=== PATIENT | female | born 1940 | race Caucasian/White ===

== ENCOUNTER 2018-06-06 15:53 | Emergency (ER) | payer OTHER ==
--- NOTE | 2018-06-06 16:38 | RAD REPORT ---
EXAM DESCRIPTION: CT - Head Brain Wo Cont - 06/06/2018 4:21 pm CLINICAL HISTORY: Left-sided headache and periauricular pain COMPARISON: None. TECHNIQUE: Axial 5 mm thick images of the head were obtained without IV contrast. All CT scans are performed using dose optimization technique as appropriate and may include automated exposure control or mA/KV adjustment according to patient size. FINDINGS: No intracranial hemorrhage, mass, edema or shift of mid-line structures. No acute infarcti on changes seen. No abnormal extra-axial fluid collections. Mild atrophy and chronic ischemic changes . Ventricles are in proportion. Mastoid air cells and visualized portions of the paranasal sinuses are clear. No acute bony findings. IMPRESSION: Negative non-contrast CT head examination for acute finding.
[2018-06-06 17:02] LABS: Absolute Lymphocytes (CBC) 1.9 K/uL (0.7-4.9); Absolute Monocytes 0.6 K/uL (0.1-1.3); Absolute Neutrophil 2.5 K/uL (1.8-8.0); Basophils % 0.5 % (0-1.3); Eosinophils % 4.1 % (0-4.4); Hematocrit 39.7 % (36.0-45.0); Lymphocytes % 36.6 % (15.3-44.8); MPV 9.2 fL (7.6-11.3); Monocytes % 11.3 % (3.3-12.3); RBC Red Blood Cell Count 4.52 M/uL (3.86-4.86)
[2018-06-06 17:04] LABS: Protime INR 1.01
--- NOTE | 2018-06-06 17:13 | RAD REPORT ---
EXAM DESCRIPTION: RAD - Chest Single View - 06/06/2018 4:59 pm CLINICAL HISTORY: Cough, shortness of breath COMPARISON: None. TECHNIQUE: AP portable chest image was obtained 1650 hours . FINDINGS: No peripheral mass or consolidation. No vascular engorgement seen. Mediastinum is distorte d slightly by rotation. Interstitial markings are prominent suspected to be baseline. Heart and vascu lature are normal. No measurable pleural effusion and no pneumothorax. No acute bone finding. Bilater al shoulder prostheses in place. No acute aortic findings suspected. IMPRESSION: No acute cardiopulmonary process. Prominent interstitial markings believed be baseline. Fullness of the right hilum is believed to be right pulmonary artery accentuated by slight patient ro tation.
[2018-06-06 17:19] LABS: ALT/SGPT 28 U/L (12-78); AST/SGOT 34 U/L (15-37); Albumin 3.6 g/dL (3.4-5.0); Alkaline Phosphatase 60 U/L (45-117); BUN Blood Urea Nitrogen 31 mg/dL (7-18); Bicarbonate 27 mmol/L (21-32); Bilirubin Direct 0.1 mg/dL (0-0.2); Bilirubin Total 0.3 mg/dL (0.2-1.0); Glucose Level 90 mg/dL (74-106); Magnesium 2.4 mg/dL (1.8-2.4); NT PRO-BNP 99 pg/mL (<450); Potassium 3.8 mmol/L (3.5-5.1); Protein, Total 7.1 g/dL (6.4-8.2); Sodium Level 141 mmol/L (136-145); Troponin (Emerg Dept Use Only) < 0.02 ng/mL (0.0-0.045)
--- NOTE | 2018-06-06 17:43 | EKG ---
Test Date: 2018-06-06 Test Time: 16:25:36 Coil Winder Hand: FAUSTINO MEASUREMENT RESULTS: Intervals: Rate: 70 WV: 154 QRSD: 106 QT: 438 QTc: 473 [place]: P: 12 WV: 154 QRS: 60 T: 36 INTERPRETIVE STATEMENTS: Normal sinus rhythm Incomplete right bundle branch block Borderline ECG No previous ECG available for comparison Electronically Signed On 06-06-18 17:42:26 CDT by Garcia Junior
[2018-06-06] MEDS ORDERED: GABAPENTIN 300 MG CAP ONE (18:58)
[2018-06-06] MEDS ORDERED: HYDROCODONE/APAP 7.5/325 MG TAB ONE (18:59)
--- NOTE | 2018-06-06 19:05 | ER ---
Nurse's Notes [facility] Name: Chhaya Hair Age: 77 yrs Sex: Female : 1940 Arrival Date: 06/06/2018 Time: 15:58 Bed 6 Private MD: out of town, doctor Diagnosis: Neuralgia and neuritis, unspecified Presentation: 06/06 16:00 Presenting complaint: Patient states: 3 days ago this pain started behind my left ear, tw2 i sat down and about an hour or 2 later there was a dote on the wall that moved, then when i got close to it it was a hole in the wall, [place] live in [place] and didn't have time to come get it checked out then yesterday it started throbbing behind my left ear. Transition of care: patient was not received from another setting of care. Onset of symptoms was June 06, 2018. Risk Assessment: Do you want to hurt yourself or someone else? Patient reports no desire to harm self or others. Initial Sepsis Screen: Does the patient meet any 2 criteria? No. Patient's initial sepsis screen is negative. Does the patient have a suspected source of infection? No. Patient's initial sepsis screen is negative. Care prior to arrival: None. 16:00 Method Of Arrival: Ambulatory tw2 16:00 Acuity: HAMIL[place] 2 tw2 Triage Assessment: 16:03 Headache History: Denies prior headaches. General: Appears in no apparent distress. tw2 Behavior is calm, cooperative, appropriate for age. Pain: Complains of pain in left ear and left base of the skull Pain currently is 0 out of 10 on a pain scale. at worst was 10 out of 10 on a pain scale. Pain began 2-3 days ago. Also complains of no other associated symptoms. Neuro: Reports blurred vision yesterday Denies blurred vision. Historical: - Allergies: 16:05 No Known Allergies; tw2 - PMHx: 16:05 Hypothyroidism; tw2 - Immunization history:: Adult Immunizations. - Social history:: Smoking status: . - Ebola Screening: : Patient denies travel to an Ebola-affected area in the 21 days before illness onset. Screenin:30 Abuse screen: Denies threats or abuse. Denies injuries from another. Nutritional hb screening: No deficits noted. Tuberculosis screening: No symptoms or risk factors identified. Fall Risk None identified. Assessment: 16:30 General: Appears in no apparent distress. Behavior is calm, cooperative. Pain: Pain hb currently is 5 out of 10 on a pain scale. at worst was 10 out of 10 on a pain scale. Neuro: Level of Consciousness is awake, alert, obeys commands, Oriented to person, place, time, situation. Cardiovascular: Capillary refill < 3 seconds Patient's skin is warm and dry. Respiratory: Airway is patent Respiratory effort is even, unlabored, Respiratory pattern is regular, symmetrical, Breath sounds are clear bilaterally. GI: No signs and/or symptoms were reported involving the gastrointestinal system. : No signs and/or symptoms were reported regarding the genitourinary system. EENT: No signs and/or symptoms were reported regarding the EENT system. Derm: Skin is intact, is healthy with good turgor, Skin is pink, warm \\T\\ dry. Musculoskeletal: No signs and/or symptoms reported regarding the musculoskeletal system. 17:30 Reassessment: Patient appears in no apparent distress at this time. Patient and/or hb family updated on plan of care and expected duration. Pain level reassessed. Patient is alert, oriented x 3, equal unlabored respirations, skin warm/dry/pink. 18:30 Reassessment: Patient appears in no apparent distress at this time. No changes from hb previously documented assessment. Patient and/or family updated on plan of care and expected duration. Pain level reassessed. Patient is alert, oriented x 3, equal unlabored respirations, skin warm/dry/pink. 19:24 Reassessment: Patient appears in no apparent distress at this time. Patient and/or jd3 family updated on plan of care and expected duration. Pain level reassessed. Patient is alert, oriented x 3, equal unlabored respirations, skin warm/dry/pink. Vital Signs: 16:02 BP 132 / 81; Pulse 71; Resp 17; Temp 97.2(TE); Pulse Ox 97% on R/A; Weight 79.38 kg tw2 (R); Height 5 ft. 0 in. (152.40 cm); Pain 10/10; 18:00 BP 136 / 86; Pulse 74; Resp 16; Pulse Ox 99% on R/A; hb 16:02 Body Mass Index 34.18 (79.38 kg, 152.40 cm) tw2 16:02 "its a 10 when its there it comes and goes and is a throbbing behind my ear" tw2 ED Course: 15:58 Patient arrived in ED. mr 15:58 out of town, doctor is Private Physician. mr 16:02 Triage completed. tw2 16:03 Arm band placed on. tw2 16:05 Inserted saline lock: 20 gauge in left antecubital area, using aseptic technique. Blood hb collected. 16:09 Howard Rodrigez MD is Attending Physician. kdr 16:20 CT Head Brain wo Cont In Process Unspecified. EDMS 16:29 EKG done, by wind energy technician. reviewed by Howard Rodrigez MD. sm3 16:30 Patient has correct armband on for positive identification. Bed in low position. Call hb light in reach. Side rails up X 1. 16:39 Margo Payton, BETZY is Primary Nurse. ss 16:59 XRAY Chest (1 view) In Process Unspecified. EDMS 19:25 No provider procedures requiring assistance completed. IV discontinued, intact, jd3 bleeding controlled, No redness/swelling at site. Pressure dressing applied. Administered Medications: 18:48 Drug: Neurontin 300 mg Route: PO; bp 19:10 Follow up: Response: No adverse reaction jd3 18:49 Drug: [place] (7.5 mg-325 mg) 1 tabs Route: PO; bp 19:11 Follow up: Response: No adverse reaction jd3 19:23 Drug: TORadol - Ketorolac 15 mg Route: IVP; Site: left antecubital; jd3 19:23 Follow up: Response: Medication administered at discharge. jd3 19:23 Drug: SOLU-Medrol 125 mg Route: IVP; Site: left antecubital; jd3 19:23 Follow up: Response: Medication administered at discharge. jd3 Outcome: 19:05 Discharge ordered by . kdr 19:25 Discharged to home ambulatory, with family. jd3 19:25 Condition: stable 19:25 Discharge instructions given to patient, family, Instructed on discharge instructions, follow up and referral plans. medication usage, Demonstrated understanding of instructions, follow-up care, medications, Prescriptions given X 3. 19:26 Patient left the ED. jd3 Signatures: Dispatcher [employer] EDMS Howard Rodrigez MD MD kdr Rivera, Mary mr TataMargo, RN RN ss Jessica Butler, RN RN hb Hortensia Mayers RN RN tw2 Demian Vázquez RN RN jd3 Gentry Thomas RN RN bp Pushpa Sommers 3 Corrections: (The following items were deleted from the chart) 16:05 16:00 Acuity: HAMILTON 3 tw tw
--- NOTE | 2018-06-06 19:06 | EDPHYS ---
Physician Documentation [facility] Name: Chhaya Hair Age: 77 yrs Sex: Female : 1940 Arrival Date: 06/06/2018 Time: 15:58 Bed 6 Private MD: out of town, doctor ED Physician Howard Rodrigez HPI: 06/06 18:51 This 77 yrs old Female presents to ER via Ambulatory with complaints of kdr Headache, Vision Problem. 18:51 The patient states that about three days ago, she started to have pain behind left ear kdr and on left side of head and then also had some transient visual disturbance yesterday that resolved and has not returned. Her DIAZ the is post auricular and stabbing/sharp in nature. When it effects her, it makes her jump. There are no other associated s/s. Onset: The symptoms/episode began/occurred gradually, 3 day(s) ago. Severity of symptoms: At their worst the symptoms were moderate severe in the emergency department the symptoms have improved moderately. The patient has not experienced similar symptoms in the past. The patient has not recently seen a physician. Historical: - Allergies: 16:05 No Known Allergies; tw2 - PMHx: 16:05 Hypothyroidism; tw2 - Immunization history:: Adult Immunizations. - Social history:: Smoking status: . - Ebola Screening: : Patient denies travel to an Ebola-affected area in the 21 days before illness onset. ROS: 18:51 Constitutional: Negative for fever, chills, and weight loss, Eyes: Negative for injury, kdr pain, redness, and discharge, ENT: Negative for injury, pain, and discharge, Neck: Negative for injury, pain, and swelling, Cardiovascular: Negative for chest pain, palpitations, and edema, Respiratory: Negative for shortness of breath, cough, wheezing, and pleuritic chest pain, Abdomen/GI: Negative for abdominal pain, nausea, vomiting, diarrhea, and constipation, Back: Negative for injury and pain, : Negative for injury, bleeding, discharge, and swelling, MS/Extremity: Negative for injury and deformity, Skin: Negative for injury, rash, and discoloration, Psych: Negative for depression, anxiety, suicide ideation, homicidal ideation, and hallucinations, Allergy/Immunology: Negative for hives, rash, and allergies, Endocrine: Negative for neck swelling, polydipsia, polyuria, polyphagia, and marked weight changes, Hematologic/Lymphatic: Negative for swollen nodes, abnormal bleeding, and unusual bruising. 18:51 Neuro: Positive for Shooting pain behind left ear, Negative for altered mental status, dizziness, gait disturbance, hearing loss, loss of consciousness, numbness, seizure activity, speech changes, syncope, near syncope, tingling, tinnitus, tremor, weakness. Exam: 18:51 Constitutional: This is a well developed, well nourished patient who is awake, alert, kdr and in no acute distress. Head/Face: Normocephalic, atraumatic. Eyes: Pupils equal round and reactive to light, extra-ocular motions intact. Lids and lashes normal. Conjunctiva and sclera are non-icteric and not injected. Cornea within normal limits. Periorbital areas with no swelling, redness, or edema. Neck: Trachea midline, no thyromegaly or masses palpated, and no cervical lymphadenopathy. Supple, full range of motion without nuchal rigidity, or vertebral point tenderness. No Meningismus. Chest/axilla: Normal chest wall appearance and motion. Nontender with no deformity. No lesions are appreciated. Cardiovascular: Regular rate and rhythm with a normal S1 and S2. No gallops, murmurs, or rubs. Normal PMI, no JVD. No pulse deficits. Respiratory: Lungs have equal breath sounds bilaterally, clear to auscultation and percussion. No rales, rhonchi or wheezes noted. No increased work of breathing, no retractions or nasal flaring. Abdomen/GI: Soft, non-tender, with normal bowel sounds. No distension or tympany. No guarding or rebound. No evidence of tenderness throughout. Back: No spinal tenderness. No costovertebral tenderness. Full range of motion. Skin: Warm, dry with normal turgor. Normal color with no rashes, no lesions, and no evidence of cellulitis. MS/ Extremity: Pulses equal, no cyanosis. Neurovascular intact. Full, normal range of motion. Neuro: Awake and alert, GCS 15, oriented to person, place, time, and situation. Cranial nerves II-XII grossly intact. Motor strength 5/5 in all extremities. Sensory grossly intact. Cerebellar exam normal. Normal gait. Psych: Awake, alert, with orientation to person, place and time. Behavior, mood, and affect are within normal limits. Vital Signs: 16:02 BP 132 / 81; Pulse 71; Resp 17; Temp 97.2(TE); Pulse Ox 97% on R/A; Weight 79.38 kg tw2 (R); Height 5 ft. 0 in. (152.40 cm); Pain 10/10; 18:00 BP 136 / 86; Pulse 74; Resp 16; Pulse Ox 99% on R/A; hb 16:02 Body Mass Index 34.18 (79.38 kg, 152.40 cm) tw2 16:02 "its a 10 when its there it comes and goes and is a throbbing behind my ear" tw2 MDM: 18:51 Data reviewed: vital signs, nurses notes, lab test result(s), radiologic studies. kdr Counseling: I had a detailed discussion with the patient and/or guardian regarding: the historical points, exam findings, and any diagnostic results supporting the discharge/admit diagnosis, lab results, radiology results, the need for outpatient follow up. 19:05 Patient medically screened. kdr 06/06 16:10 Order name: Basic Metabolic Panel; Complete Time: 18:14 kdr 06/06 16:10 Order name: CBC with Diff; Complete Time: 18:14 kdr 06/06 16:10 Order name: LFT's; Complete Time: 18:14 kdr 06/06 16:10 Order name: Magnesium; Complete Time: 18:14 kdr 06/06 16:10 Order name: NT PRO-BNP; Complete Time: 18:14 kdr 06/06 16:10 Order name: PT-INR; Complete Time: 18:14 kdr 06/06 16:10 Order name: Troponin (emerg Dept Use Only); Complete Time: 18:14 kdr 06/06 16:10 Order name: XRAY Chest (1 view); Complete Time: 18:14 kdr 06/06 16:10 Order name: EKG; Complete Time: 16:10 kdr 06/06 16:10 Order name: CT Head Brain wo Cont; Complete Time: 18:14 kdr 06/06 16:10 Order name: Cardiac monitoring; Complete Time: 16:40 kdr 06/06 16:10 Order name: EKG - Nurse/Tech; Complete Time: 16:40 kdr 06/06 16:10 Order name: IV Saline Lock; Complete Time: 16:40 kdr 06/06 16:10 Order name: Labs collected and sent; Complete Time: 16:40 kdr 06/06 16:10 Order name: O2 Per Protocol; Complete Time: 16:40 kdr 06/06 16:10 Order name: O2 Sat Monitoring; Complete Time: 16:40 kdr 06/06 16:24 Order name: FSBS; Complete Time: 16:40 kdr Administered Medications: 18:48 Drug: Neurontin 300 mg Route: PO; bp 19:10 Follow up: Response: No adverse reaction jd3 18:49 Drug: [place] (7.5 mg-325 mg) 1 tabs Route: PO; bp 19:11 Follow up: Response: No adverse reaction jd3 19:23 Drug: TORadol - Ketorolac 15 mg Route: IVP; Site: left antecubital; jd3 19:23 Follow up: Response: Medication administered at discharge. jd3 19:23 Drug: SOLU-Medrol 125 mg Route: IVP; Site: left antecubital; jd3 19:23 Follow up: Response: Medication administered at discharge. jd3 Disposition: 06/06/18 19:05 Discharged to Home. Impression: Neuralgia and neuritis, unspecified. - Condition is Stable. - Discharge Instructions: Occipital Neuralgia. - Prescriptions for Neurontin 300 mg Oral Capsule - take 1 capsule by ORAL route every 8 hours; 30 capsule. Tylenol- Codeine #3 300-30 mg Oral Tablet - take 2 tablets by ORAL route every 6 hours As needed Take one to two tablets every four to six horus as needed for pain; 16 tablet. Medrol (Sharan) 4 mg Oral Tablets, Dose Pack - take 1 tablet by ORAL route as directed - follow package instructions; 1 packet. - Medication Reconciliation Form, Thank You Letter, Antibiotic Education, Prescription Opioid Use form. - Follow up: Private Physician; When: 2 - 3 days; Reason: If symptoms return, Further diagnostic work-up, Recheck today's complaints, Continuance of care, Re-evaluation by your physician. - Problem is new. - Symptoms have improved. Signatures: Dispatcher [employer] EDHoward Gil MD MD kdr Hortensia Mayers RN RN tw2 Demian Vázquez RN RN jd3 Gentry Thomas RN RN bp Corrections: (The following items were deleted from the chart) 19:26 19:05 06/06/2018 19:05 Discharged to Home. Impression: Neuralgia and neuritis, jd3 unspecified. Condition is Stable. Discharge Instructions: Occipital Neuralgia. Prescriptions for Neurontin 300 mg Oral Capsule - take 1 capsule by ORAL route every 8 hours; 30 capsule, Tylenol-Codeine #3 300-30 mg Oral Tablet - take 2 tablets by ORAL route every 6 hours As needed Take one to two tablets every four to six horus as needed for pain; 16 tablet, Medrol (Sharan) 4 mg Oral Tablets, Dose Pack - take 1 tablet by ORAL route as directed - follow package instructions; 1 packet. and Forms are Medication Reconciliation Form, Thank You Letter, Antibiotic Education, Prescription Opioid Use. Follow up: Private Physician; When: 2 - 3 days; Reason: If symptoms return, Further diagnostic work-up, Recheck today's complaints, Continuance of care, Re-evaluation by your physician. Problem is new. Symptoms have improved. kdr
[2018-06-06] MEDS ORDERED: METHYLPREDNISOLONE 125 MG INJ ONE (19:26)
[2018-06-06] MEDS ORDERED: KETOROLAC 30 MG/ML INJ ONE (19:26)
== END 2018-06-06 19:26 | disposition home or self-care (01) ==
LOC: ER 15:53
DX: M79.2 Neuralgia and neuritis, unspecified (principal); E03.9 Hypothyroidism, unspecified
CPT/HCPCS: 93005; 85025; 80048; 36415; 83735; 85610; 80076; 84484; 83880; 70450; 71045; 96375; 96374; 99284; J2930